=== PATIENT | male | born 1960 | race Caucasian/White ===

== ENCOUNTER 2021-02-05 19:34 | Inpatient (IN) | payer BC, OTHER ==
[~2021-02-05] VITALS: Ht 180.3 cm; Wt 117.9 kg
[2021-02-05 20:17] LABS: HEMOGLOBIN 17.3 gm/dl (14.0-17.5); RED BLOOD COUNT 5.01 M/UL (4.20-5.50); WHITE BLOOD COUNT 6.7 K/UL (4.5-11.0)
[2021-02-05] MEDS ORDERED: COZAAR100 MG PO (21:43)
[2021-02-05] MEDS ORDERED: NORVASC10 MG PO (21:43)
[2021-02-05] MEDS ORDERED: ASPIRIN EC81 MG PO (21:44)
[2021-02-06 09:29] LABS: HEMOGLOBIN 17.1 gm/dl (14.0-17.5); WHITE BLOOD COUNT 5.9 K/UL (4.5-11.0)
[2021-02-06 09:37] LABS: BUN/CREATININE RATIO 21 (0-10)
[2021-02-07 04:34] LABS: HEMOGLOBIN 16.5 gm/dl (14.0-17.5); RED BLOOD COUNT 4.87 M/UL (4.20-5.50); WHITE BLOOD COUNT 6.8 K/UL (4.5-11.0)
[2021-02-07 04:53] LABS: BUN/CREATININE RATIO 23 (0-10)
[2021-02-08 03:58] LABS: HEMOGLOBIN 17.4 gm/dl (14.0-17.5); RED BLOOD COUNT 5.09 M/UL (4.20-5.50); WHITE BLOOD COUNT 8.5 K/UL (4.5-11.0)
[2021-02-08 04:25] LABS: BUN/CREATININE RATIO 26 (0-10)
[2021-02-09 04:06] LABS: HEMOGLOBIN 16.4 gm/dl (14.0-17.5); RED BLOOD COUNT 5.1 M/UL (4.20-5.50); WHITE BLOOD COUNT 6.2 K/UL (4.5-11.0)
[2021-02-09 04:23] LABS: BUN/CREATININE RATIO 27 (0-10)
[2021-02-09] MEDS ORDERED: AZITHROMYCIN250 MG PO (11:36)
[2021-02-09] MEDS ORDERED: OMNICEF 300 MG300 MG PO (11:36)
[2021-02-09] MEDS ORDERED: ZINC SULFATE50 MG PO (11:36)
[2021-02-09] MEDS ORDERED: PROTONIX 40 MG40 M1 PO (11:36)
[2021-02-09] MEDS ORDERED: DEXAMETHASONE 44 MG PO (11:36)
== END 2021-02-09 14:06 | disposition home or self-care (01) | DRG 177 ==
LOC: ER1 19:34 → PROG CARE 21:06 → CDU 21:06 → PROG CARE 22:19
PROVIDERS: Emergency Medicine; Internal Medicine; ADMIT Internal Medicine
PROC: 8E0ZXY6 Isolation (ICD-10-PCS; principal; 2021-02-05)
PROC: XW033E5 Introduction of Remdesivir Anti-infective into Peripheral Vein, Percutaneous Approach, New Technology Group 5 (ICD-10-PCS; 2021-02-05)
PROC: 5A09357 Assistance with Respiratory Ventilation, Less than 24 Consecutive Hours, Continuous Positive Airway Pressure (ICD-10-PCS; 2021-02-08)
DX: U07.1 COVID-19 (principal); J12.82 Pneumonia due to coronavirus disease 2019; J96.01 Acute respiratory failure with hypoxia; J15.9 Unspecified bacterial pneumonia; N17.9 Acute kidney failure, unspecified; E87.1 Hypo-osmolality and hyponatremia; E66.2 Morbid (severe) obesity with alveolar hypoventilation; I10 Essential (primary) hypertension; Z87.891 Personal history of nicotine dependence; Z68.36 Body mass index [BMI] 36.0-36.9, adult; Z90.49 Acquired absence of other specified parts of digestive tract; Z83.3 Family history of diabetes mellitus
CPT/HCPCS: 36415; 36600; 71045; 80048; 80053; 82550; 82553; 82728; 82803; 83605; 83615; 83690; 83735; 83874; 83880; 84100; 84484; 85025; 85027; 85379; 85610; 85730; 86140; 87040; 93005; 94660; 94760; 96365; 96375; 99285; C9113; J0456; J0696; J1100; J1650; J7030

== ENCOUNTER → 2021-03-11 | Outpatient (CLI) | payer BC, OTHER ==
[~2021-03-11] MED LIST: ASPIRIN EC81 MG PO; AZITHROMYCIN250 MG PO; COZAAR100 MG PO; DEXAMETHASONE 44 MG PO; NORVASC10 MG PO; OMNICEF 300 MG300 MG PO; PROTONIX 40 MG40 M1 PO; ZINC SULFATE50 MG PO
== END ==
LOC: SLEEP-COR 11:55
DX: G47.33 Obstructive sleep apnea (adult) (pediatric) (principal); G47.61 Periodic limb movement disorder
CPT/HCPCS: 95810

== ENCOUNTER → 2021-03-15 | Outpatient (CLI) | payer BC, OTHER | LOC: EXRD 11:32 | DX: Z09 Encounter for follow-up examination after completed treatment for conditions other than malignant neoplasm (principal); Z86.16 Personal history of COVID-19 | CPT/HCPCS: 71046 ==